=== PATIENT | female | born 1975 | race Hispanic/Latino ===

== ENCOUNTER 2023-07-16 16:02 | Emergency (ER) | payer BC ==
[~2023-07-16] VITALS: Ht 154.9 cm; Wt 73.9 kg
[2023-07-16 16:11] VITALS: BP 135/88; PULSE 64; RESP 14
[2023-07-16] MEDS: KETOROLAC 15MG/ML VIAL (15MG/ML) IM STA (16:58)
[2023-07-16] MEDS: METHOCARBAMOL 500 MG TABLET PO STA ×2 (16:58→17:52)
[2023-07-16] MEDS ORDERED: METH-662 PO (18:32)
== END 2023-07-16 18:47 | disposition home or self-care (01) ==
LOC: EDH 16:02
DX: M54.50 Low back pain, unspecified (principal); M79.18 Myalgia, other site; Z90.49 Acquired absence of other specified parts of digestive tract; Z90.710 Acquired absence of both cervix and uterus; Z98.890 Other specified postprocedural states
CPT/HCPCS: 99284; 72100; 96372; J1885